=== PATIENT | female | born 1965 | race Caucasian/White ===

== ENCOUNTER 2023-09-26 12:18 | Emergency (ER) | payer BC ==
[2023-09-26 12:38] LABS: APPEARANCE,URINE CLEAR (CLEAR); BILIRUBIN,URINE NEGATIVE (NEGATIVE); COLOR,URINE YELLOW; GLUCOSE,URINE NEGATIVE (NEGATIVE); KETONES,URINE NEGATIVE (NEGATIVE); LEUKOCYTE ESTERASE,URINE SMALL (NEGATIVE); NITRITE,URINE NEGATIVE (NEGATIVE); OCCULT BLOOD,URINE TRACE-LYSED (NEGATIVE); PH,URINE 6.5 (5.0-8.0); PROTEIN,URINE TRACE mg/dL (NEGATIVE)
[2023-09-26 12:42] LABS: CALCIUM OXALATE CRYSTALS,URINE MODERATE /HPF; MUCUS,URINE FEW /HPF; RBC,URINE 0-5 /HPF; SQUAMOUS EPITHELIAL CELLS,UR FEW /HPF; WBC,URINE 20-30 /HPF
[2023-09-26] MEDS: Phenazopyridine 100 MG Tab PO ONE (12:47)
[2023-09-26] MEDS ORDERED: Nitrofurantoin Macrocrystal 50 MG Cap ONE (12:50)
== END 2023-09-26 12:55 | disposition home or self-care (01) ==
LOC: LB.ED 12:18
DX: N39.0 Urinary tract infection, site not specified (principal); Z79.899 Other long term (current) drug therapy
CPT/HCPCS: 81001; 87086; 99283; A9270